=== PATIENT | female | born 1975 | race Caucasian/White ===

== ENCOUNTER 2017-10-16 05:56 | Day surgery (SDC) | payer OTHER ==
[2017-10-13 16:02] VITALS: BMI 44.9
--- NOTE | 2017-10-16 07:31 | HP ---
Admitting History and Physical - Admission History of Present Illness: Patient is a 42 y/o female with a past medical history of CVA x 2, htn, hld, chronic pain and depression. Patient presents for ect. patient has received ect in the past at [facility]. She was recently admitted for [place] and was discharged on 10/05/17. Patient reports struggling with depression throughout her entire life and was recommended for ect by her psychiatrist. patient denies any suicidal or homicidal ideation, visual or auditory hallucinations. 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 Cardiovascular: Yes: HTN, Hyperlipdemia ...LMP: 10/07/17 ...: No - Smoking History Smoking history: Former smoker Have you smoked in the past 12 months: Yes Aproximately how many cigarettes per day: 10 If you are a former smoker, when did you quit?: 09/26/17 - Alcohol/Substance Use Hx Alcohol Use: Yes (1-2 A MONTH) History of Substance Use: reports: None - Social History Usual Living Arrangement: Yes: With Parent ADL: Independent History of Recent Travel: No Home Medications - Allergies Allergies/Adverse Reactions: Allergies Allergy/AdvReac Type Severity Reaction Status Date / Time cephalexin Allergy Severe Rash Verified 10/13/17 15:29 metoclopramide Allergy Severe DYSTONIC Verified 10/13/17 15:29 REACTION tramadol Allergy Severe SEIZURES Verified 10/13/17 15:29 - Home Medications Home Medications: Ambulatory Orders Cholecalciferol (Vitamin D3) [Vitamin D3 -] 1,000 unit PO DAILY 10/13/17 Clonazepam [Klonopin] 1 mg PO TID 10/13/17 Clopidogrel Bisulfate [Plavix] 75 mg PO DAILY 10/13/17 Cyanocobalamin [Vitamin B12 -] 1,000 mcg PO DAILY 10/13/17 Cyclobenzaprine HCl [Flexeril -] 10 mg PO TID 10/13/17 Ferrous Sulfate [Iron] 325 mg PO DAILY 10/13/17 Fluvoxamine Maleate [Luvox -] 100 mg PO BID 10/13/17 Levothyroxine [Synthroid -] 50 mcg PO DAILY 10/13/17 Oxcarbazepine [Trileptal] 150 mg PO BID 10/13/17 Quetiapine Fumarate [Seroquel] 100 mg PO HS 10/13/17 Sertraline HCl [Zoloft -] 150 mg PO DAILY 10/13/17 Family Disease History - Family Disease History Family History: Denies Review of Systems - Review of Systems Constitutional: reports: No Symptoms Eyes: reports: No Symptoms HENT: reports: No Symptoms Neck: reports: No Symptoms Cardiovascular: reports: No Symptoms Respiratory: reports: No Symptoms Gastrointestinal: reports: No Symptoms Genitourinary: reports: No Symptoms Musculoskeletal: reports: No Symptoms Integumentary: reports: No Symptoms Neurological: reports: No Symptoms Endocrine: reports: No Symptoms Hematology/Lymphatic: reports: No Symptoms Psychiatric: reports: Depression Physical Examination Vital Signs: Vital Signs Temperature 97.8 F 10/16/17 06:38 Pulse Rate 78 10/16/17 06:38 Respiratory Rate 18 10/16/17 06:38 Blood Pressure 119/76 10/16/17 06:38 O2 Sat by Pulse Oximetry (%) 98 10/16/17 06:38 Constitutional: Yes: Well Nourished, No Distress, Calm Eyes: Yes: WNL, Conjunctiva Clear, EOM Intact HENT: Yes: WNL, Atraumatic, Normocephalic Neck: Yes: WNL, Supple, Trachea Midline Cardiovascular: Yes: WNL, Regular Rate and Rhythm, S1, S2 Respiratory: Yes: WNL, Regular, CTA Bilaterally Gastrointestinal: Yes: WNL, Normal Bowel Sounds, Soft ...Rectal Exam: Yes: Deferred Renal/: Yes: WNL Breast(s): Yes: WNL Musculoskeletal: Yes: WNL Extremities: Yes: WNL Edema: No Peripheral Pulses WNL: Yes Peripheral Pulses: Left Radial: 4+, Right Radial: 4+, Left Doralis Pedis: 3+, Right Dorsalis Pedis: 3+, Left Femoral: 3+, Right Femoral: 3+ Integumentary: Yes: WNL Neurological: Yes: WNL, Alert, Oriented ...Motor Strength: WNL Psychiatric: Yes: WNL, Alert, Oriented Labs: reviewed 10/13 Imaging - Results EKG: Image Reviewed, Other (nsr) Assessment/Plan Patient is a 42 y/o female that presents for ect, labs and ekg reviewed patient is medically optimized for procedure informed consent, risks/benefits to be obtained by Dr Jones,
[2017-10-16 09:06] VITALS: TEMP 98.1
[2017-10-16 09:34] VITALS: BP 115/76; PULSE 90
== END 2017-10-16 09:35 | disposition home or self-care (01) ==
LOC: FECT 05:56
PROVIDERS: ATTEND Psychiatry & Neurology Psychiatry
PROC: GZB4ZZZ Other Electroconvulsive Therapy (ICD-10-PCS; principal; 2017-10-16 07:15)
DX: F33.2 Major depressive disorder, recurrent severe without psychotic features (principal); I10 Essential (primary) hypertension; E78.5 Hyperlipidemia, unspecified; Z86.73 Personal history of transient ischemic attack (TIA), and cerebral infarction without residual deficits; Z87.891 Personal history of nicotine dependence
CPT/HCPCS: 84703; 90870; 94760

== ENCOUNTER 2017-10-18 07:15 | Day surgery (SDC) | payer OTHER ==
[2017-10-16 09:47] VITALS: BMI 44.9
[2017-10-18 07:13] VITALS: TEMP 98
[2017-10-18] MEDS ORDERED: KETAMINE HCL 500 MG/10 ML VIAL ONE (07:57)
[2017-10-18] MEDS ORDERED: PICC LINE 8 ML FLUSH PROTOCOL IVPUSH PRN (08:56)
[2017-10-18 10:04] VITALS: BP 136/78; PULSE 80
== END 2017-10-18 10:00 | disposition home or self-care (01) ==
LOC: FECT 07:15
PROVIDERS: ATTEND Psychiatry & Neurology Psychiatry
PROC: GZB4ZZZ Other Electroconvulsive Therapy (ICD-10-PCS; principal; 2017-10-18 07:15)
DX: F33.2 Major depressive disorder, recurrent severe without psychotic features (principal)
CPT/HCPCS: 90870; 94760

== ENCOUNTER 2017-10-20 05:54 | Day surgery (SDC) | payer OTHER ==
[2017-10-16 09:53] VITALS: BMI 44.9
[2017-10-20 07:53] VITALS: TEMP 98
[2017-10-20] MEDS ORDERED: KETAMINE HCL 500 MG/10 ML VIAL ONE (08:45)
[2017-10-20] MEDS ORDERED: LACTATED RINGERS SOLUTION 1,000 ML IV SCH (09:15)
[2017-10-20] MEDS ORDERED: ONDANSETRON 4 MG/2 ML VIAL IVPUSH PRN (09:15)
[2017-10-20 10:42] VITALS: BP 138/91; PULSE 68
== END 2017-10-20 10:10 | disposition home or self-care (01) ==
LOC: FECT 05:54
PROVIDERS: ATTEND Psychiatry & Neurology Psychiatry
PROC: GZB4ZZZ Other Electroconvulsive Therapy (ICD-10-PCS; principal; 2017-10-20 08:45)
DX: F33.2 Major depressive disorder, recurrent severe without psychotic features (principal)
CPT/HCPCS: 84703; 90870; 94760

== ENCOUNTER → 2017-10-24 | Day surgery (SDC) | payer OTHER | END | disposition home or self-care (01) | LOC: JRADIR 08:40 | PROVIDERS: ATTEND Psychiatry & Neurology Psychiatry | PROC: B518ZZA Fluoroscopy of Superior Vena Cava, Guidance (ICD-10-PCS; 2017-10-24) | PROC: 02HV33Z Insertion of Infusion Device into Superior Vena Cava, Percutaneous Approach (ICD-10-PCS; principal; 2017-10-24 09:30) | DX: Z76.89 Persons encountering health services in other specified circumstances (principal); F32.89 Other specified depressive episodes | CPT/HCPCS: 36569; 77001-TC-FY; C1751 ==

== ENCOUNTER 2017-10-25 05:40 | Day surgery (SDC) | payer OTHER ==
[2017-10-19 18:09] VITALS: BMI 44.9
[2017-10-25] MEDS ORDERED: KETAMINE HCL 500 MG/10 ML VIAL ONE (07:21)
[2017-10-25 08:26] VITALS: TEMP 98.2
[2017-10-27] MEDS ORDERED: KETAMINE HCL 500 MG/10 ML VIAL ONE (07:10)
[2017-10-27 07:20] VITALS: BP 120/66; PULSE 86
== END 2017-10-25 09:00 | disposition home or self-care (01) ==
LOC: FECT 05:40
PROVIDERS: ATTEND Psychiatry & Neurology Psychiatry
PROC: GZB4ZZZ Other Electroconvulsive Therapy (ICD-10-PCS; principal; 2017-10-25 07:00)
DX: F33.2 Major depressive disorder, recurrent severe without psychotic features (principal)
CPT/HCPCS: 84703; 90870; 94760

== ENCOUNTER 2017-10-27 05:45 | Day surgery (SDC) | payer OTHER ==
[2017-10-25 13:17] VITALS: BMI 44.9
[2017-10-27] MEDS ORDERED: oxyCODONE HCL 5 MG TABLET PO PRN (07:58)
[2017-10-27] MEDS ORDERED: ONDANSETRON 4 MG/2 ML VIAL IVPUSH PRN (07:58)
[2017-10-27 08:10] VITALS: TEMP 99
[2017-10-27 08:38] VITALS: BP 112/74; PULSE 89
== END 2017-10-27 08:35 | disposition home or self-care (01) ==
LOC: FECT 05:45
PROVIDERS: ATTEND Psychiatry & Neurology Psychiatry
PROC: GZB4ZZZ Other Electroconvulsive Therapy (ICD-10-PCS; principal; 2017-10-27 07:45)
DX: F33.2 Major depressive disorder, recurrent severe without psychotic features (principal)
CPT/HCPCS: 90870; 94760

== ENCOUNTER 2017-10-30 05:42 | Day surgery (SDC) | payer OTHER ==
[2017-10-30 06:42] VITALS: BMI 44.9
[2017-10-30] MEDS ORDERED: KETAMINE HCL 500 MG/10 ML VIAL ONE (07:44)
[2017-10-30 08:45] VITALS: TEMP 98.3
[2017-10-30 10:56] VITALS: BP 116/72; PULSE 82
== END 2017-10-30 09:30 | disposition home or self-care (01) ==
LOC: FECT 05:42
PROVIDERS: ATTEND Psychiatry & Neurology Psychiatry
PROC: GZB4ZZZ Other Electroconvulsive Therapy (ICD-10-PCS; principal; 2017-10-30 07:00)
DX: F33.2 Major depressive disorder, recurrent severe without psychotic features (principal)
CPT/HCPCS: 84703; 90870; 94760

== ENCOUNTER 2017-11-01 05:39 | Day surgery (SDC) | payer OTHER ==
[2017-11-01 06:38] VITALS: TEMP 98.2; BMI 44.9
[2017-11-01] MEDS ORDERED: KETAMINE HCL 500 MG/10 ML VIAL ONE (07:03)
[2017-11-01 09:19] VITALS: BP 118/76; PULSE 76
== END 2017-11-01 09:22 | disposition home or self-care (01) ==
LOC: FECT 05:39
PROVIDERS: ATTEND Psychiatry & Neurology Psychiatry
PROC: GZB4ZZZ Other Electroconvulsive Therapy (ICD-10-PCS; principal; 2017-11-01 07:30)
DX: F33.2 Major depressive disorder, recurrent severe without psychotic features (principal)
CPT/HCPCS: 90870; 94760

== ENCOUNTER 2017-11-15 05:42 | Day surgery (SDC) | payer OTHER ==
[2017-11-06 18:13] VITALS: BMI 45.5
[2017-11-15] MEDS ORDERED: KETAMINE HCL 500 MG/10 ML VIAL ONE (07:24)
[2017-11-15] MEDS ORDERED: PROMETHAZINE HCL 25 MG/1 ML VIAL IVPB PRN (08:09)
[2017-11-15] MEDS ORDERED: ACETAMINOPHEN 325 MG TABLET (FP) PO PRN (08:09)
[2017-11-15] MEDS ORDERED: ONDANSETRON 4 MG/2 ML VIAL IVPUSH PRN (08:09)
[2017-11-15 08:34] VITALS: TEMP 98
--- NOTE | 2017-11-15 08:54 | HP ---
Admitting History and Physical - Admission History of Present Illness: Patient is a 42-year-old female with a past history of CVA 2, hypertension, hyperlipidemia, chronic pain and depression. Patient presents for ect her last ect was 11/06/17. Patient reports an increase in her Seroquel 100 mg twice a day , She reports significant improvement after starting a ECT in addition to the medication change. She denies any recent illnesses or hospitalizations. Patient denies any suicidal homicidal ideation or visual auditory hallucinations. Patient does report compliance with prescribed medications. 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 Cardiovascular: Yes: HTN, Hyperlipdemia ...LMP: 11/10/17 ...: No - Smoking History Smoking history: Current every day smoker Have you smoked in the past 12 months: Yes Aproximately how many cigarettes per day: 10 If you are a former smoker, when did you quit?: 09/26/17 - Alcohol/Substance Use Hx Alcohol Use: Yes (1-2 A MONTH) History of Substance Use: reports: None - Social History Usual Living Arrangement: Yes: With Parent ADL: Independent History of Recent Travel: No Home Medications - Allergies Allergies/Adverse Reactions: Allergies Allergy/AdvReac Type Severity Reaction Status Date / Time cephalexin Allergy Severe Rash Verified 10/19/17 18:04 metoclopramide Allergy Severe DYSTONIC Verified 10/19/17 18:04 REACTION tramadol Allergy Severe SEIZURES Verified 10/19/17 18:04 - Home Medications Home Medications: Ambulatory Orders Cholecalciferol (Vitamin D3) [Vitamin D3 -] 1,000 unit PO DAILY 10/13/17 Clonazepam [Klonopin] 1 mg PO BID 10/13/17 Clopidogrel Bisulfate [Plavix] 75 mg PO DAILY 10/13/17 Cyanocobalamin [Vitamin B12 -] 1,000 mcg PO DAILY 10/13/17 Cyclobenzaprine HCl [Flexeril -] 10 mg PO TID 10/13/17 Ferrous Sulfate [Iron] 325 mg PO DAILY 10/13/17 Levothyroxine [Synthroid -] 50 mcg PO DAILY 10/13/17 Oxcarbazepine [Trileptal] 150 mg PO BID 10/13/17 Quetiapine Fumarate [Seroquel] 100 mg PO BID 10/13/17 Sertraline HCl [Zoloft -] 150 mg PO DAILY 10/13/17 Family Disease History - Family Disease History Family History: Denies Review of Systems - Review of Systems Constitutional: reports: No Symptoms Eyes: reports: No Symptoms HENT: reports: No Symptoms Neck: reports: No Symptoms Cardiovascular: reports: No Symptoms Respiratory: reports: No Symptoms Gastrointestinal: reports: No Symptoms Genitourinary: reports: No Symptoms Musculoskeletal: reports: No Symptoms Integumentary: reports: No Symptoms Neurological: reports: No Symptoms Endocrine: reports: No Symptoms Hematology/Lymphatic: reports: No Symptoms Psychiatric: reports: No Symptoms Physical Examination Vital Signs: Vital Signs Temperature 98 F 11/15/17 08:20 Pulse Rate 92 H 11/15/17 08:20 Respiratory Rate 18 11/15/17 08:20 Blood Pressure 118/77 11/15/17 08:20 O2 Sat by Pulse Oximetry (%) 94 L 11/15/17 08:20 Constitutional: Yes: Well Nourished, No Distress, Calm, Obese Eyes: Yes: WNL, Conjunctiva Clear, EOM Intact HENT: Yes: WNL, Atraumatic, Normocephalic Neck: Yes: Supple, Trachea Midline Cardiovascular: Yes: WNL, Regular Rate and Rhythm, S1, S2 Respiratory: Yes: WNL, Regular, CTA Bilaterally Gastrointestinal: Yes: WNL, Normal Bowel Sounds, Soft ...Rectal Exam: Yes: Deferred Renal/: Yes: WNL Breast(s): Yes: WNL Musculoskeletal: Yes: WNL Extremities: Yes: WNL, Other (Right upper extremity, brachial PICC line noted no erythema no induration noted to site) Edema: No Integumentary: Yes: Tattoos. No: Petechiae Neurological: Yes: WNL, Alert, Oriented ...Motor Strength: WNL Psychiatric: Yes: WNL, Alert, Oriented Labs: Laboratory Tests 11/15/17 05:58 Urine HCG, Qual Negative CBC and BMP Reviewed September 2017 Imaging - Results EKG: Report Reviewed, Image Reviewed, Other (nsr) Assessment/Plan patient is a 42-year-old female presents for a CT, labs and EKG reviewed. patient is medically optimized for procedure
[2017-11-15 09:13] VITALS: BP 116/74; PULSE 90
== END 2017-11-15 09:15 | disposition home or self-care (01) ==
LOC: FECT 05:42
PROVIDERS: ATTEND Psychiatry & Neurology Psychiatry
PROC: GZB4ZZZ Other Electroconvulsive Therapy (ICD-10-PCS; principal; 2017-11-15 07:00)
DX: F33.2 Major depressive disorder, recurrent severe without psychotic features (principal)
CPT/HCPCS: 84703; 90870; 94760

== ENCOUNTER 2017-11-17 05:47 | Day surgery (SDC) | payer OTHER ==
[2017-11-17 07:21] VITALS: BMI 45.5
[2017-11-17] MEDS ORDERED: KETAMINE HCL 500 MG/10 ML VIAL ONE (07:51)
[2017-11-17 09:34] VITALS: PULSE 92; TEMP 98.1
[2017-11-17 10:13] VITALS: BP 140/82
== END 2017-11-17 09:55 | disposition home or self-care (01) ==
LOC: FECT 05:47
PROVIDERS: ATTEND Psychiatry & Neurology Psychiatry
PROC: GZB4ZZZ Other Electroconvulsive Therapy (ICD-10-PCS; principal; 2017-11-17 07:45)
DX: F33.2 Major depressive disorder, recurrent severe without psychotic features (principal)
CPT/HCPCS: 90870; 94760

== ENCOUNTER 2017-11-21 05:45 | Day surgery (SDC) | payer OTHER ==
[2017-11-21 06:58] VITALS: TEMP 98.1; BMI 41.1
[2017-11-21] MEDS ORDERED: KETAMINE HCL 500 MG/10 ML VIAL ONE (08:22)
[2017-11-21 10:07] VITALS: BP 132/72; PULSE 94
== END 2017-11-21 10:00 | disposition home or self-care (01) ==
LOC: FECT 05:45
PROVIDERS: ATTEND Psychiatry & Neurology Psychiatry
PROC: GZB4ZZZ Other Electroconvulsive Therapy (ICD-10-PCS; principal; 2017-11-21 07:45)
DX: F33.2 Major depressive disorder, recurrent severe without psychotic features (principal)
CPT/HCPCS: 84703; 90870; 94760

== ENCOUNTER 2017-11-23 05:47 | Day surgery (SDC) | payer OTHER ==
[2017-11-23 06:32] VITALS: BMI 41.1
[2017-11-23] MEDS ORDERED: KETAMINE HCL 500 MG/10 ML VIAL ONE (07:29)
[2017-11-23 08:54] VITALS: TEMP 98.2
[2017-11-23 09:51] VITALS: BP 120/78; PULSE 86
== END 2017-11-23 09:15 | disposition home or self-care (01) ==
LOC: FECT 05:47
PROVIDERS: ATTEND Psychiatry & Neurology Psychiatry
PROC: GZB4ZZZ Other Electroconvulsive Therapy (ICD-10-PCS; principal; 2017-11-23 08:15)
DX: F33.2 Major depressive disorder, recurrent severe without psychotic features (principal)
CPT/HCPCS: 90870; 94760

== ENCOUNTER 2017-11-28 05:44 | Day surgery (SDC) | payer OTHER ==
[2017-11-28 06:26] VITALS: BMI 41.0
[2017-11-28] MEDS ORDERED: KETAMINE HCL 500 MG/10 ML VIAL ONE (06:50)
[2017-11-28 08:27] VITALS: TEMP 98.9
[2017-11-28 09:55] VITALS: BP 126/78; PULSE 78
== END 2017-11-28 09:15 | disposition home or self-care (01) ==
LOC: FECT 05:44
PROVIDERS: ATTEND Psychiatry & Neurology Psychiatry
PROC: GZB4ZZZ Other Electroconvulsive Therapy (ICD-10-PCS; principal; 2017-11-28 07:45)
DX: F33.2 Major depressive disorder, recurrent severe without psychotic features (principal)
CPT/HCPCS: 84703; 90870; 94760